=== PATIENT | female | born 1960 ===

== ENCOUNTER 2020-11-18 17:43 | Emergency (ER) | payer OTHER ==
[2020-11-18] MEDS ORDERED: Acetaminophen/HYDROcodone 325-5 MG Tab ONE (18:00)
[2020-11-18] MEDS ORDERED: Ketorolac 60 MG/2 ML SDV ONE (18:23)
--- NOTE | 2020-11-18 18:29 | EDM.PDOC ---
ED HPI GENERAL MEDICAL PROBLEM - General Chief Complaint: Upper Extremity Injury/Pain Stated Complaint: FALL Time Seen by Provider: 11/18/20 17:45 - History of Present Illness INITIAL COMMENTS - FREE TEXT/NARRATIVE: Pt tripped and fell down 1 step today. She injured her Left wrist and left ankle. She tried catching herself with her left arm. She has severe pain of the lt wrist with movement 10/10, and less pain of the lt ankle 4/10. No other injuries noted. She is not on any blood thinners. Review of Systems - Review of Systems Review Of Systems: Comprehensive ROS is negative, except as noted in HPI. Musculoskeletal: Reports: Other (Left wrist and left ankle pain due to injury.) ED EXAM, GENERAL - Physical Exam Exam: See Below Extremities: Other (mild swelling noted to the left wrist and distal forearm. Skin is intact. Significant pain with any movement. Left ankle reveals swelling of the lateral malleolus with skin intact.) Course - Orders/Labs/Meds Orders: Active Orders 24 hr Category Date Time Status Ankle Min 3V Lt [CR] Stat Exams 11/18/20 17:46 Ordered Wrist Comp Min 3V Lt [CR] Stat Exams 11/18/20 17:47 Ordered Meds: Medications Discontinued Medications Generic Name Dose Route Start Last Admin Trade Name Freq PRN Reason Stop Dose Admin Ketorolac Tromethamine Confirm 11/18/20 18:23 Ketorolac 60 Mg/2 Ml Sdv Administered 11/18/20 18:24 Dose 60 mg .ROUTE .STK-MED ONE - Re-Assessments/Exams Free Text/Narrative Re-Assessment/Exam: 11/18/20 18:29 x-rays of the wrist reveal a distal Radial fracture with minimal dorsal displacement. Also an Ulnar styloid fracture. Ankle x-rays are negative for fracture. Pt was given Tollhouse 5/325 m g 1 tab po. Kerlix was applied followed by a gutter splint. A sling was also given. RICE therapy discussed. Tollhouse tabs were sent home with her. Toradol 60 mg IM was also given. She can use Motrin in between dosed of Tollhouse as needed. She is to follow up with her PCP early next week. Follow up sooner prn. Departure - Departure Time of Disposition: 18:25 Disposition: Home, Self-Care 01 Condition: Good Clinical Impression: Fracture of radius and ulna Qualifiers: Encounter type: initial encounter Fracture type: closed Laterality: left Qualified Code(s): S52.92XA - Unspecified fracture of left forearm, initial encounter for closed fracture; S52.202A - Unspecified fracture of shaft of left ulna, initial encounter for closed fracture - Discharge Information *PRESCRIPTION DRUG MONITORING PROGRAM REVIEWED*: No *COPY OF PRESCRIPTION DRUG MONITORING REPORT IN PATIENT NICANOR: No Additional Instructions: RICE therapy - Can use Motrin in between doses of Tollhouse. Follow up with PCP early next week, follow up sooner as needed. Sepsis Event Note (ED) - Evaluation Sepsis Screening Result: No Definite Risk - My Orders Last 24 Hours: My Active Orders 11/18/20 17:46 Ankle Min 3V Lt [CR] Stat 11/18/20 17:47 Wrist Comp Min 3V Lt [CR] Stat - Assessment/Plan Last 24 Hours: My Active Orders 11/18/20 17:46 Ankle Min 3V Lt [CR] Stat 11/18/20 17:47 Wrist Comp Min 3V Lt [CR] Stat
[2020-11-18] MEDS ORDERED: Acetaminophen/HYDROcodone 325-5 MG Tab PO ONE (18:47)
--- NOTE | 2020-11-19 12:21 | CR ---
DATE OF SERVICE: 11/18/2020 CLINICAL DATA: Injury. LEFT WRIST: There is a mildly impacted, intra-articular fracture through the distal radius with slight dorsal angulation of the distal fragments with respect to the proximal. There is also a minimally displaced comminuted fracture through the ulnar styloid. No other acute abnormalities. [id number] [facility]TD[facility]
--- NOTE | 2020-11-19 12:23 | CR ---
DATE OF SERVICE: 11/18/2020 CLINICAL DATA: Injury - fell. LEFT ANKLE: There is soft tissue swelling over the lateral malleolus. No acute fracture or dislocation. No lytic or blastic bone lesions. There is a plantar calcaneal spur. [id number] [facility]
== END 2020-11-18 18:29 | disposition home or self-care (01) ==
LOC: LB.ED 17:43
DX: S52.202A Unspecified fracture of shaft of left ulna, initial encounter for closed fracture (principal); W10.8XXA Fall (on) (from) other stairs and steps, initial encounter
CPT/HCPCS: 29125; 73110-LT; 73610-LT; 96372; 99283-25; A9270-GY; J1885